=== PATIENT | male | born 1980 | race Caucasian/White ===

== ENCOUNTER 2020-09-08 10:42 | Outpatient (REF) | payer OTHER, SELFPAY ==
--- NOTE | ~2020-09-08 | XR_ITS ---
EXAMINATION: BILATERAL KNEE. CLINICAL INFORMATION: Pain bilaterally. COMPARISON: None TECHNIQUE: 4 views each knee. FINDINGS: RIGHT KNEE: The tricompartment joint space is maintained and normal. No bony erosive changes, loose bodies or joint effusion seen. No fracture or subluxation. The soft tissues are normal. LEFT KNEE: The tricompartment joint space is maintained normal. No fracture, dislocation or subluxation. No loose bodies or joint effusion seen. The soft tissues are normal. XR/XR knee LT 4V IMPRESSION: Unremarkable bilateral knee exam.
--- NOTE | ~2020-09-08 | XR_ITS ---
EXAMINATION: BILATERAL KNEE. CLINICAL INFORMATION: Pain bilaterally. COMPARISON: None TECHNIQUE: 4 views each knee. FINDINGS: RIGHT KNEE: The tricompartment joint space is maintained and normal. No bony erosive changes, loose bodies or joint effusion seen. No fracture or subluxation. The soft tissues are normal. LEFT KNEE: The tricompartment joint space is maintained normal. No fracture, dislocation or subluxation. No loose bodies or joint effusion seen. The soft tissues are normal. XR/XR knee RT 4V IMPRESSION: Unremarkable bilateral knee exam.
== END 2020-09-08 10:43 | disposition home or self-care (01) ==
LOC: HO.HMGCX 10:42
PROVIDERS: PCP Internal Medicine; Visit Provider Nurse Practitioner Family
DX: M25.561 Pain in right knee (principal); M25.562 Pain in left knee
CPT/HCPCS: 73564

== ENCOUNTER 2021-06-29 07:49 | Outpatient (RCR) | payer OTHER, SELFPAY ==
--- NOTE | 2021-06-29 12:32 | MHC.PT.EP ---
[facility] [place] Office [place] Office [place] Office [address] Shaun Carcamo [address] [phone] F: [phone] F: [phone] F: [phone] F: [phone] Physical Therapy Plan of Care Date of Evaluation: Date of Surgery: Diagnosis: This is a 41 yo male presenting to skilled PT with a script for neck strain. Assessment: This is a 41 yo male presenting to skilled PT with a script for neck strain. Pt reports a slip and fall on the since where he fell backwards/onto his R side with loss of consciousness (this occurred on 06/07/21, fall occurred at his residence). He went to [facility] ER and had a CT of the c-spine. Per PCP note unremarkable except for disc protrusion noted at C4-5 causing mild to moderate R sided spinal canal stenosis . He reports today that he knows his body and he had whiplash and a concussion. He had a follow up with his PCP on 06/09/21 where he was still complaining of BUENROSTRO (described as migraine that does not have a specific pattern), brain fog/lack of focus and difficulty with concentration. He also reports difficulty sleeping at night due to neck pain. He was advised to rest, avoid watching TV and computer work, avoid heavy lifting and was out of work for a while (however technically back to work in full but misses work and has a hard time with performing his job since then). He was also given a referral to neurology and saw them yesterday where they suggested pain management as well cognitive speech therapy (returns to neurology on 07/26). Prior to this fall there was a note in our system of neck pain that started in January without injury (woke up with pain, pain was R sided). Patient denies this as chronic pain and states that this was probably from sleeping the wrong way . Assessment reveals pain that ranges up to a 6/10, his pain is constant. He demos decreased cervical and shoulder ROM, decreased shoulder and scapular strength, impaired transfer ability with decreased cervical motion or UB use, impaired cervical and shoulder joint mobility as well as gross functional decline with prolonged positioning, driving and work related tasks. He is a good candidate for skilled PT 2x/wk for 5wks. Patient called after leaving [facility] and states increased fogginess. He did not feel comfortable going to work and asked for a note to excuse him. I educated him to call his MD as this is out of my scope of practice. I also educated him on gentle movements as he states that he has been avoiding most movements. Frequency and Duration: The patient will be seen 2x/wk for 5wks Short Term Goals: I in HEP Demo proper cervical alignment and posture with ther-ex, no PT cuing Reduce general fogginess to no more than 1x/day Usp Goals: Demo normal cervical AROM without pain Improve pain to no more than 2/10 at the worst Improve NDI by 10 points Tolerate sleeping through the night without waking from pain Demo at least 4+/5 scapular and shoulder strength Treatment Plan: Modalities to reduce pain, spasms and effusion. Manual therapy to restore motion and function. Therapeutic exercise to improve strength and flexibility. Neuromuscular re-education for posture and balance. Therapeutic activities to return to functional activities of daily living. Electronically signed by: Rae Ty PT Please sign and return to therapist. Thank you for your referral.
--- NOTE | 2021-07-06 07:54 | MHC.PT.DC ---
[facility] [place] Office [place] Office [place] Office [address] Shaun Carcamo [address] [phone] F: [phone] F: [phone] F: [phone] F: [phone] Physical Therapy Discharge Report Diagnosis: This is a 41 yo male presenting to skilled PT with a script for neck strain. Date of Surgery: Date of Evaluation: 06/29/21 Date of Discharge: 07/06/21 Treatments to Date: 1 Cancellations to Date: 0 No Shows to Date: 0 Discharge Status: Visit Non-compliance Discharge Summary: This is a 41 yo male presenting to skilled PT with a script for neck strain. Pt reports a slip and fall on the since where he fell backwards/onto his R side with loss of consciousness (this occurred on 06/07/21, fall occurred at his residence). He went to [facility] ER and had a CT of the c-spine. Per PCP note unremarkable except for disc protrusion noted at C4-5 causing mild to moderate R sided spinal canal stenosis . He reports today that he knows his body and he had whiplash and a concussion. He had a follow up with his PCP on 06/09/21 where he was still complaining of BUENROSTRO (described as migraine that does not have a specific pattern), brain fog/lack of focus and difficulty with concentration. He also reports difficulty sleeping at night due to neck pain. He was advised to rest, avoid watching TV and computer work, avoid heavy lifting and was out of work for a while (however technically back to work in full but misses work and has a hard time with performing his job since then). He was also given a referral to neurology and saw them yesterday where they suggested pain management as well cognitive speech therapy (returns to neurology on 07/26). Prior to this fall there was a note in our system of neck pain that started in January without injury (woke up with pain, pain was R sided). Patient denies this as chronic pain and states that this was probably from sleeping the wrong way . Assessment reveals pain that ranges up to a 6/10, his pain is constant. He demos decreased cervical and shoulder ROM, decreased shoulder and scapular strength, impaired transfer ability with decreased cervical motion or UB use, impaired cervical and shoulder joint mobility as well as gross functional decline with prolonged positioning, driving and work related tasks. He is a good candidate for skilled PT 2x/wk for 5wks. Patient called after leaving [facility] and states increased fogginess. He did not feel comfortable going to work and asked for a note to excuse him. I educated him to call his MD as this is out of my scope of practice. I also educated him on gentle movements as he states that he has been avoiding most movements. Patient then proceeded to no show to the next 2 visits without notice to facility. At evaluation he had been educated on physical therapy tx, concussion management and visit compliance. DC at this time to non-compliance with scheduled visits and multiple no shows. Electronically signed by: Rae Ty PT Please sign and return to therapist. Thank you for your referral.
== END 2021-07-06 07:54 | disposition home or self-care (01) ==
LOC: HO.PTCHIC 07:49
PROVIDERS: PCP Internal Medicine; Visit Provider Internal Medicine
DX: S13.9XXA Sprain of joints and ligaments of unspecified parts of neck, initial encounter (principal); S14.0XXD Concussion and edema of cervical spinal cord, subsequent encounter; M50.20 Other cervical disc displacement, unspecified cervical region; Z91.81 History of falling
CPT/HCPCS: 97110; 97162

== ENCOUNTER 2023-07-05 12:41 | Outpatient (AMB) | payer OTHER, SELFPAY ==
--- NOTE | 2023-07-05 12:54 | AM.OFFWIN_ITS ---
Intake Vital Signs 07/05/23 12:59 Height 5 ft 7 in Weight 226 lb BMI 35.4 BP 160/100 H Blood Pressure Location Lt brachial Position Sitting Pulse 94 Pulse Source Pulse Oximeter Temp 98.2 F Temp Source Temporal Artery Scan Pulse Oximetry (%) 97 Oxygen Delivery Method Room Air Intake Visit Reasons: EST/ left bright rash (lobby) Intake Note: pt is here today for lft bright rash started 2 months ago Patient Tobacco Use Status: Never used Tobacco Allergies atenolol [ATENOLOL] Allergy (Unknown, Verified 07/05/23 12:54) UNKNOWN, heart racing 14-Count Warmer Allergy (Unknown, Uncoded 07/13/21 14:21) unknown Do you need a note to return to daycare/school/sports/work: No HPI HPI Comments History of Present Illness Details He presents to office wt rash Ongoing x 2 months Small area on bright and has worsened USed OTC creams; ? psoriasis or eczema Itchy and ittitated L side bright only. Denies noticing other rash on body now +itchy without bleeding + bumpy without discharge. Irritated more when dries out [facility] Medical History (Updated 07/05/23 @ 13:13 by Jamilah Escalante PA-C) Cervical spinal stenosis Bulging of cervical intervertebral disc History of fall Surgical History H/O cardiac radiofrequency ablation History of appendectomy Social History Housing: House Alcohol intake: current Alcohol intake frequency: does not drink Patient Tobacco Use Status: Never used Tobacco e-Cigarette/Vaping Use: Never Used service: No Current occupational status: employed Review of Systems Const Denies chills and Denies fever(s) Card Denies dyspnea Resp Denies dyspnea Skin/Breast Reports lesions, Reports erythema, Reports rash and Reports other (L bright itching) Physical Exam Vital Signs: Last Vital Signs Temp 98.2 F 07/05/23 12:59 Pulse 94 07/05/23 12:59 BP 160/100 H 07/05/23 12:59 Pulse Ox 97 07/05/23 12:59 Oxygen Delivery Method Room Air 07/05/23 12:59 BMI result Body Mass Index 35.4 General: Non-toxic, NAD. Speaking full sentences. Skin: Warm dry throughout. L anterior bright has erythematous slightly purple bumping maculopapular follicular patch approx 6inches long x 4 inches wide. + warm to palpation. No drainage or bleeding Eye: EOMI Respiratory: No respiratory distress Cardiac: RRR. No murmur MSK: Full ROM extremities. Neurology: A/O. No aphasia or facial droop. Gait without abnormality Psych: Good mood and affect Assessment & Plan Assessment & Plan (1) Staph skin infection: Code(s): L08.9 - Local infection of the skin and subcutaneous tissue, unspecified; B95.8 - Unspecified staphylococcus as the cause of diseases classified elsewhere Plan: Patient seen and evaluated. Avoid itching Keflex to pharmacy Benadryl cream F/U with PCP Patient gave verbal understanding and had no additional questions or concerns at time of discharge All questions answered Medications: New cephalexin 500 mg PO Q12H 14 caps 0RF diphenhydramine HCl 2% (Benadryl) 1 appl topical BID PRN 103 mL 0RF itching Coding Level of Care Code Est Pt Level 3 (14260) Diagnoses Staph skin infection L08.9; B95.8
[2023-07-05 12:59] VITALS: BP 160/100; PULSE 94; TEMP 36.8; O2SAT 97; BMI 35.4
== END 2023-07-05 13:13 | disposition home or self-care (01) ==
PROVIDERS: PCP Internal Medicine; Visit Provider Physician Assistant
DX: L08.9 Local infection of the skin and subcutaneous tissue, unspecified (principal); B95.8 Unspecified staphylococcus as the cause of diseases classified elsewhere
CPT/HCPCS: 99213

== ENCOUNTER 2024-06-20 12:57 | Outpatient (AMB) | payer OTHER, MEDICAID, SELFPAY ==
[2024-06-20 13:14] VITALS: BP 142/100; PULSE 91; TEMP 37.4; O2SAT 94
--- NOTE | 2024-06-20 13:14 | MHC.OFFWIV ---
Intake Vital Signs 06/20/24 13:14 Weight 230 lb BP 142/100 H Blood Pressure Location Rt brachial Position Sitting Pulse 91 Pulse Source Pulse Oximeter Temp 99.4 F Temp Source Oral Pulse Oximetry (%) 94 Oxygen Delivery Method Room Air Intake Visit Reasons: EP-cough, sob, migraine, body ache Intake Note: Patient here for cough, migraine, SOB, body aches that has been present for 2 months. Patient Tobacco Use Status: Never used Tobacco Allergies atenolol [ATENOLOL] Allergy (Unknown, Verified 06/20/24 13:15) UNKNOWN, heart racing 14-Count Warmer Allergy (Unknown, Uncoded 06/20/24 13:15) unknown Do you need a note to return to daycare/school/sports/work: No HPI HPI Comments History of Present Illness Details 44 y/o male patient who presents to the walk in clinic with c/o cough, headaches and body aches x 2 months. [facility] Medical History (Updated 06/20/24 @ 13:29 by Yvette Vela NP) Cough Acute respiratory disease Cervical spinal stenosis Bulging of cervical intervertebral disc History of fall Surgical History H/O cardiac radiofrequency ablation History of appendectomy Social History Housing: House Alcohol intake: current Alcohol intake frequency: does not drink Patient Tobacco Use Status: Never used Tobacco e-Cigarette/Vaping Use: Never Used service: No Current occupational status: employed Review of Systems Const All systems reviewed & are unremarkable except as noted in HPI and below Physical Exam Vital Signs: Last Vital Signs Temp 99.4 F 06/20/24 13:14 Pulse 91 06/20/24 13:14 BP 142/100 H 06/20/24 13:14 Pulse Ox 94 06/20/24 13:14 Oxygen Delivery Method Room Air 06/20/24 13:14 Const General: cooperative and no acute distress Nutritional Appearance: obese Orientation/consciousness: patient oriented x3 HEENT Head: Yes normocephalic Ears: external ears normal and TM abnormal with fluid behind the TM bilateral General nose exam: Nasal discharge present Face and sinus: Yes sinuses nontender Mouth: moist mucous membranes Throat: Yes uvula midline Resp Effort & Inspection: normal respiratory effort, able to speak in complete sentences, no audible wheezes and no cough Auscultation: clear to auscultation bilaterally, no crackles, no rales, no rhonchi and no wheezes Cardio Heart sounds: S1 normal heart sound present and S2 normal heart sound present Neuro General: patient oriented x3 Assessment & Plan Assessment & Plan (1) Acute respiratory disease: Code(s): J06.9 - Acute upper respiratory infection, unspecified Plan: Ordered SARs Ordered Chest Xray (2) Cough: Code(s): R05.9 - Cough, unspecified Qualifiers: Cough type: subacute Qualified Code(s): R05.2 - Subacute cough Plan: Ordered SARs Ordered Chest Xray Orders: Orders XR chest 2V Today J06.9 - Acute upper respiratory infection, unspecified, R05.2 - Subacute cough SARS-CoV2/FLU/RSV Today J06.9 - Acute upper respiratory infection, unspecified Medications: New benzonatate 100 mg PO TID 90 caps 0RF R05.2 - Subacute cough Coding Level of Care Code Est Pt Level 4 (78182) Diagnoses Acute respiratory disease J06.9 Subacute cough R05.2 Cough type: subacute Time Spent (min) 20
--- OUTSIDE RECORDS SUMMARY | 2024-06-20 13:51 | XMS_ITS | Data Portability ---
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 Primary Care Provider Assessment No assessment recorded. Plan of Treatment Reminders Order Date Submit Date Provider Last Modified By Organization Details Last Modified Time Details Appointments None recorded. Lab Mycobacteri um tuberculosi s stimulated gamma interferon, qual, blood 2022 023 LOMAN [facility], [address] [place] [address], [place], [address], 20:06:21 Referral None recorded. Procedures None recorded. Surgeries None recorded. Imaging None recorded. Medication Orders None recorded. Patient TargetsNo targets recorded. Patient Instructions Encounter Date Encounter Id Patient Instructions Last Modified By Organization Details Last Modified Time 12/07/2022 [id number] This physical does not replace the annual physical to be performed by your PCP. There may be additional screening tests that they will perform that we do not in the urgent care setting. Failure to follow up as recommended may result in significant adverse health consequences. ? If your symptoms worsen or you develop new symptoms that concern you, go to the emergency department for further evaluation. [email or web address] Not available 12/07/2022 10:08:31 Reason for Referral None Reported. Results Created Date Observation Date Name Description Value Unit Range Abnormal Flag Note LastModifiedBy Organization Detail LastModifiedTime 12/08/19 23 12/09/2022 QUANT IFERO N-TB GOLD PLUS quantiferon incubation INCUBA TION PERFOR MED. Not Available [facility] ([facility]) [address], [place], [address], 12/09/2022 20:06:21 12/08/19 23 12/09/2022 QUANT IFERO N-TB GOLD PLUS quantiferon criteria COMMEN T Quant iFERO N-TB Gold Plus is a quali tativ e indir ect test for M tuber jimios is infec tion (incl uding disea se) and is inten ded for use in conju nctio n with risk asses sment , radio graph y, and other medic al and diagn ostic evalu ation s. The Quant iFERO N-TB Gold Plus resul t is deter mined by subtr actin g the Nil value from eithe r TB antig en (Ag) value . The Mitog en tube serve s as a contr ol for the test. Not Available [facility] ([facility]) [address] [place], [address], 12/09/2022 20:06:21 12/08/19 23 12/09/2022 QUANT IFERO N-TB GOLD PLUS quantiferon TB1 Ag value 0.00 IU/mL Not Available [facility] ([facility]) [address] [place], [address], 12/09/2022 20:06:21 12/08/19 23 12/09/2022 QUANT IFERO N-TB GOLD PLUS quantiferon TB2 Ag value 0.00 IU/mL Not Available [facility] ([facility]) [address] [place], [address], 12/09/2022 20:06:21 12/08/19 23 12/09/2022 QUANT IFERO N-TB GOLD PLUS quantiferon nil value 0.00 IU/mL Not Available [facility] ([facility]) [address] [place], [address], 12/09/2022 20:06:21 12/08/19 23 12/09/2022 QUANT IFERO N-TB GOLD PLUS quantiferon mitogen value >10.00 IU/mL Not Available [facility] ([facility]) [address] [place], [address], 12/09/2022 20:06:21 12/08/19 23 12/09/2022 QUANT IFERO N-TB GOLD PLUS quantiferon- TB gold plus NEGATI VE negati ve No respo nse to Carmelina sampson is antig ens detec evelyn. Infec tion with M lolis sampson is is unlik raúl, but high risk indiv idual s shoul d be consi dered for addit ional testi ng (ATS/ IDSA/ CDC Clini asuncion Pract ice Guide lines , 2017) . The refer ence range is an Antig en minus Nil resul t of <0.35 IU/mL . Chemi lumin escen ce immun oassa y metho dolog y Not Available [facility] ([facility]) [address], [place], [address], 12/09/2022 20:06:21 Result Notes None recorded. Problems No Known Problems Procedures Surgical History Date Name Laterality Status Provider Name and Address Organization Details Recorded Time 12/08/19 23 OC - Venipuncture Template completed EAGLE ADWKINS [employer] - [facility] 12/07/2022 09:33:36 12/08/19 23 OC- Physical completed EAGLE DAWKINS PA - [facility] 12/07/2022 09:33:41 Imaging Results None recorded. Procedure Notes None recorded. Medical Equipment None Reported. Allergies No known drug allergies Medications Name Sig Start Date Stop Date Status Note LastModified by Organization Details LastModified Time ofloxacin 0.3 % ear drops PLACE 5 DROPS IN BOTH EARS TWICE A DAY 10 DAYS 2022 completed Not Available Not Available Not Available Vitals Date Recorded Pain severity - 0-10 verbal numeric rating [Score] - Reported Respiratory rate Body weight Body mass index (BMI) Body height Heart rate Oxygen saturation Oxygen saturation in Arterial blood by Pulse oximetry Body temperature Systolic blood pressure Diastolic blood pressure Provider Name and Address Organization Details Last Updated DateTime 3 0 18 /min 788517. 47 g 35.6 kg/m2 170.18 cm 86 /min 97 % 97 % 97.7 [degF] 142 mm[Hg] 90 mm[Hg] JERED DEPINTO [facility] - [facility] 09:53:02 Social History Question Answer Notes LastModified by Organizat ion Details LastModified Time Tobacco Smoking Status Never Smoker JERED BROCK [facility] - [facility] 12/07/2022 09:51:24 What Is Your Level Of Alcohol Consumption? None Information not available 12/07/2022 Do You Use Any Illicit Or Recreational Drugs? No Information not available 12/07/2022 Have You Recently Traveled Abroad? No Information not available 12/07/2022 Do You Or Have You Ever Used Any Other Forms Of Tobacco Or Nicotine? No Information not available 12/07/2022 Sex: Unknown Functional Status None recorded. Mental Status None recorded. Family History Relationship Description Onset Age of this Age Resolved Age Notes LastModified by Organization Details LastModified Time Father No current problems or disability Not available 12/07 09:51:17 Mother No current problems or disability Not available 12/07 09:51:17 Medical History No medical history recorded. Past Encounters Encounter ID Performer Location Encounter Start Date Encounter Closed Date Diagnosis/Indication Diagnosis SNOMED-CT Code Diagnosis ICD10 Code Diagnosis Note [id number] [address] [address] 07/09/2021 09:03:10 07/09/2021 11:00:04 [id number] [address] 08/10/2021 09:36:22 08/10/2021 11:24:28 [id number] [place] [address] [place] [address] 12/07/2022 09:21:43 12/07/2022 10:09:18 History and physical examination, occupation [id number] Z02.1 History an d physical examination, pre-employment 131548503 Z02.1 Health Concerns Section Related Observation LastModified by Organization Detai ls LastModified Time None Recorded Concern Status LastModified by Organization Details LastModified Time None Recorded Advance Directives Directive None Recorded Payers Encounter Date Sequence Insurance Name Policy Number Policy Morrow Covered Member ID Morrow Member ID Guarantor Name 07/09/2021 1 [facility] [id number] 1 Tali Ambrosen [id number] Giancarlorocky Ambrosen 08/10/2021 1 [facility] [id number] 1 Taliheather Ambrosen [id number] Giancarlo Luna 12/07/2022 OC-PAY AT TIME OF SERVICE 2022 Oc-Pay At Time Of Service [facility] Giancarlo Luna Notes Date Note Type Note Provider Name a nd Address Organization Details Recorded Time 12/07/2022 text/html physical Chin TRIXIE Bennett [address] [place], [address], [place] - [facility] 12/07/2022 10:08:54
== END 2024-06-20 14:01 | disposition home or self-care (01) ==
PROVIDERS: PCP Internal Medicine; Visit Provider Nurse Practitioner Family
DX: J06.9 Acute upper respiratory infection, unspecified (principal); R05.2 Subacute cough

== ENCOUNTER 2024-06-20 12:57 | Outpatient (REF) | payer OTHER, MEDICAID, SELFPAY ==
--- NOTE | ~2024-06-20 | XR_ITS ---
EXAMINATION: XR CHEST CLINICAL INFORMATION: R05.2 - Subacute cough COMPARISON: None available. TECHNIQUE: 2 views of the chest were obtained. FINDINGS: The cardiac, hilar, and mediastinal contours are normal. The lungs are clear bilaterally. There is no pneumothorax or pleural effusion. There is no focal osseous or soft tissue abnormality. XR/XR chest 2V IMPRESSION: Normal chest. Electronically signed by: Jeremy Crockett MD 06/20/2024 01:59 PM [facility]
== END 2024-06-20 12:58 | disposition home or self-care (01) ==
LOC: HO.HMGCX 12:57
PROVIDERS: PCP Internal Medicine; Visit Provider Nurse Practitioner Family
DX: R05.2 Subacute cough (principal); J06.9 Acute upper respiratory infection, unspecified
CPT/HCPCS: 71046

== ENCOUNTER 2024-06-20 13:46 | Outpatient (REF) | payer OTHER, MEDICAID, SELFPAY ==
[2024-06-20 17:40] LABS: Influenza A PCR NEGATIVE (Negative); Influenza B PCR NEGATIVE (Negative); Resp Syncy Virus RNA Qual PCR NEGATIVE (Negative); SARS COV2 PCR INHOUSE NEGATIVE (Negative)
== END 2024-06-20 13:47 | disposition home or self-care (01) ==
LOC: HO.LAB 13:46
PROVIDERS: Visit Provider Nurse Practitioner Family
DX: J06.9 Acute upper respiratory infection, unspecified (principal)
CPT/HCPCS: 0241U

== ENCOUNTER → 2024-06-20 13:47 | Outpatient (BNV) | payer OTHER, MEDICAID, SELFPAY | PROVIDERS: PCP Internal Medicine; Visit Provider Radiology Diagnostic Radiology | DX: R05.2 Subacute cough (principal) | CPT/HCPCS: 71046 ==

== ENCOUNTER 2024-09-05 09:25 | Outpatient (AMB) | payer OTHER, MEDICAID, SELFPAY ==
--- OUTSIDE RECORDS SUMMARY | 2024-09-05 10:02 | XMS_ITS | Data Portability ---
Author Organization [facility], [address] Address [address] [place] [address] Care Team Providers Care Inventory Worker Name Role Phone [facility] Primary Care Provider Assessment No assessment recorded. Plan of Treatment Reminders Order Date Submit Date Provider Last Modified By Organization Details Last Modified Time Details Appointments None recorded. Lab Mycobacteri um tuberculosi s stimulated gamma interferon, qual, blood 2022 023 [place] [facility], [address] [place] [address], [place], [address], 20:06:21 Referral None recorded. Procedures None recorded. Surgeries None recorded. Imaging None recorded. Medication Orders None recorded. Patient TargetsNo targets recorded. Patient Instructions Encounter Date Encounter Id Patient Instructions Last Modified By Organization Details Last Modified Time 12/07/2022 [id number] This physical does not replace the annual [...] INCUBA TION PERFOR MED. Not Available [facility] ([facility]) [address], [place], [address], 12/09/2022 20:06:21 12/08/19 23 12/09/2022 QUANT IFERO [...] ol for the test. Not Available [facility] ([facility]) [address] [place], [address], 12/09/2022 20:06:21 12/08/19 23 12/09/2022 QUANT IFERO N-TB GOLD PLUS quantiferon TB1 Ag value 0.00 IU/mL Not Available [facility] ([facility]) [address] [place], [address], 12/09/2022 20:06:21 12/08/19 23 12/09/2022 QUANT IFERO N-TB GOLD PLUS quantiferon TB2 Ag value 0.00 IU/mL Not Available [facility] ([facility]) [address] [place], [address], 12/09/2022 20:06:21 12/08/19 23 12/09/2022 QUANT IFERO N-TB GOLD PLUS quantiferon nil value 0.00 IU/mL Not Available [facility] ([facility]) [address] [place], [address], 12/09/2022 20:06:21 12/08/19 23 12/09/2022 QUANT IFERO N-TB GOLD PLUS quantiferon mitogen value >10.00 IU/mL Not Available [facility] ([facility]) [address] [place], [address], 12/09/2022 20:06:21 12/08/19 23 12/09/2022 QUANT IFERO [...] y metho dolog y Not Available [facility] ([facility]) [address], [place], [address], 12/09/2022 20:06:21 Result Notes None recorded. Problems No Known Problems Procedures Surgical History Date Name Laterality Status Provider Name and Address Organization Details Recorded Time 12/08/19 23 OC - Venipuncture Template completed EAGLE DAWKINS [employer] - [facility] [employer] [facility] 12/07/2022 09:33:36 12/08/19 23 OC- Physical [...] Last Updated DateTime 3 0 18 /min 381980. 47 g 35.6 kg/m2 170.18 cm 86 /min 97 % 97 % 97.7 [degF] 142 mm[Hg] 90 mm[Hg] JERED DEPINTO [facility]ISHAL - [facility] 09:53:02 Social History Question Answer Notes LastModified by Organizat ion Details LastModified Time Tobacco Smoking Status Never Smoker JERED BROCK [facility] 12/07/2022 09:51:24 What Is Your [...] SNOMED-CT Code Diagnosis ICD10 Code Diagnosis Note [id number] [address] [address] 07/09/2021 09:03:10 07/09/2021 11:00:04 [id number] [address] [address] 08/10/2021 09:36:22 08/10/2021 11:24:28 [id number] [place] Bennett [place] [address] [facility] [address] [place] [address] 12/07/2022 09:21:43 12/07/2022 10:09:18 History and physical examination, occupation 130003314 Z02.1 History an d physical examination, pre-employment 819406915 Z02.1 Health Concerns Section Related Observation LastModified by Organization Detai ls LastModified Time None Recorded Concern Status LastModified by Organization Details LastModified Time None Recorded Advance Directives Directive None Recorded Payers Insurance Date Sequence Insurance Name Policy Number Policy Morrow Covered Member ID Morrow Member ID Guarantor Name 12/07/2022 PAY AT TOS Oc-Pay At Time Of Service [facility] Giancarlo Amborsen 12/07/2022 OC-PAY AT TIME OF SERVICE 2022 Oc-Pay At Time Of Service [facility] Giancarlo Ambrosen 12/06/2022 1 [facility] [id number] Tali Luna [id number] Giancarlo Ambrosen Notes Date Note Type Note Provider Name a nd Address Organization Details Recorded Time 12/07/2022 text/html physical Chinkevin Bennett NP [address] [place], [address], [place] - [facility] 12/07/2022 10:08:54
--- NOTE | 2024-09-05 10:24 | MHC.OFFWIV ---
Intake Vital Signs 09/05/24 10:34 Weight 231 lb BP 130/90 H Blood Pressure Location Rt brachial Position Sitting Pulse 84 Pulse Source Pulse Oximeter Pulse Oximetry (%) 98 Oxygen Delivery Method Room Air Intake Visit Reasons: EP lower back pain rt side, kidney, work note Intake Note: Patient here for lower back pain, he went to ED on 09/02 and was told he has a kidney stone but needs an extension to the work note that was provided from ED. Patient Tobacco Use Status: Never used Tobacco Allergies atenolol [ATENOLOL] Allergy (Unknown, Verified 09/05/24 10:34) UNKNOWN, heart racing 14-Count Warmer Allergy (Unknown, Uncoded 09/05/24 10:34) unknown Do you need a note to return to daycare/school/sports/work: Yes HPI HPI Comments History of Present Illness Details 44 y/o Male patient who presents to the walk in clinic with c/o lower back pain since Monday. He was seen at [facility]/02 and was diagnosed with right Kidney Stone. He was discharged home with Flomax, Zofran and Oxycodone. Reports severe pain, and he is unable to return to work, here asking for work note. [facility] Medical History (Updated 09/05/24 @ 11:07 by Yvette Vela NP) Right kidney stone Cough Acute respiratory disease Cervical spinal stenosis Bulging of cervical intervertebral disc History of fall Surgical History H/O cardiac radiofrequency ablation History of appendectomy Social History Housing: House Alcohol intake: current Alcohol intake frequency: does not drink Patient Tobacco Use Status: Never used Tobacco e-Cigarette/Vaping Use: Never Used service: No Current occupational status: employed Review of Systems Const All systems reviewed & are unremarkable except as noted in HPI and below Physical Exam Vital Signs: Last Vital Signs Pulse 84 09/05/24 10:34 BP 130/90 H 09/05/24 10:34 Pulse Ox 98 09/05/24 10:34 Oxygen Delivery Method Room Air 09/05/24 10:34 Const General: no acute distress; No comfortable Nutritional Appearance: obese Orientation/consciousness: patient oriented x3 General: Yes CVA tenderness (right sided. ) Back/Spine/Pelvis Back: CVA tenderness (right sided. ) and back tenderness Neuro General: patient oriented x3, gait normal and moves all extremities Assessment & Plan Assessment & Plan (1) Right kidney stone: Code(s): N20.0 - Calculus of kidney Plan: Ordered Naproxen Rest, work note given Take medications as prescribed. Medications: New naproxen 500 mg PO BID 20 tabs 0RF N20.0 - Calculus of kidney Coding Level of Care Code Est Pt Level 4 (58141) Diagnoses Right kidney stone N20.0 Time Spent (min) 20
[2024-09-05 10:34] VITALS: BP 130/90; PULSE 84; O2SAT 98
== END 2024-09-05 11:26 | disposition home or self-care (01) ==
PROVIDERS: PCP Internal Medicine; Visit Provider Nurse Practitioner Family
DX: Z13.9 Encounter for screening, unspecified (principal); N20.0 Calculus of kidney

== ENCOUNTER → 2024-09-05 09:25 | Outpatient (BNVA) | payer OTHER, MEDICAID, SELFPAY | PROVIDERS: PCP Internal Medicine; Visit Provider Nurse Practitioner Family | DX: N20.0 Calculus of kidney (principal) | CPT/HCPCS: 81003 ==

== ENCOUNTER 2024-09-16 08:55 | Outpatient (AMB) | payer OTHER, MEDICAID, SELFPAY ==
--- OUTSIDE RECORDS SUMMARY | 2024-09-16 09:03 | XMS_ITS | Data Portability ---
Author Organization [facility], [address] Address [address] [place] [address] Care Team Providers Care Suit Attendant Name Role Phone [facility] Primary Care Provider [phone] Assessment No assessment recorded. Plan of Treatment Reminders Order Date Submit Date Provider Last Modified By Organization Details Last Modified Time Details Appointments None recorded. Lab Mycobacteri um tuberculosi s stimulated gamma interferon, qual, blood 2022 023 [place] [facility], [address] [place] [address], [place], [address], 20:06:21 Referral None recorded. Procedures None recorded. Surgeries None recorded. Imaging None recorded. Medication Orders None recorded. Patient TargetsNo targets recorded. Patient Instructions Encounter Date Encounter Id Patient Instructions Last Modified By Organization Details Last Modified Time 12/07/2022 [id number] This physical does not replace the annual [...] INCUBA TION PERFOR MED. Not Available [facility] ([facility]) [address] [facility], [place], [address], 12/09/2022 20:06:21 12/08/19 23 12/09/2022 QUANT IFERO [...] ol for the test. Not Available [facility] ([facility]) [address] [place], [address], 12/09/2022 20:06:21 12/08/19 23 12/09/2022 QUANT IFERO N-TB GOLD PLUS quantiferon TB1 Ag value 0.00 IU/mL Not Available [facility] ([facility]) [address] [place], [address], 12/09/2022 20:06:21 12/08/19 23 12/09/2022 QUANT IFERO N-TB GOLD PLUS quantiferon TB2 Ag value 0.00 IU/mL Not Available [facility] ([facility]) [address] [place], [address], 12/09/2022 20:06:21 12/08/19 23 12/09/2022 QUANT IFERO N-TB GOLD PLUS quantiferon nil value 0.00 IU/mL Not Available [facility] ([facility]) [address] [place], [address], 12/09/2022 20:06:21 12/08/19 23 12/09/2022 QUANT IFERO N-TB GOLD PLUS quantiferon mitogen value >10.00 IU/mL Not Available [facility] ([facility]) [address] [place], [address], 12/09/2022 20:06:21 12/08/19 23 12/09/2022 QUANT IFERO N-TB GOLD PLUS quantiferon- TB gold plus NEGATI VE negati ve No respo nse to M lolis sampson is antig ens detec evelyn. Infec [...] y metho dolog y Not Available [facility] ([facility]) [address] [facility], [place], [address], 12/09/2022 20:06:21 Result Notes None recorded. Problems No Known Problems Procedures Surgical History Date Name Laterality Status Provider Name and Address Organization Details Recorded Time 12/08/19 23 OC - Venipuncture Template completed EAGLE DAWKINS PA - [facility] 12/07/2022 09:33:36 12/08/19 23 OC- Physical [...] Not Available Not Available Vitals Date Recorded Respiratory rate Body weight Body mass index (BMI) Body height Heart rate Oxygen saturation Oxygen saturation in Arterial blood by Pulse oximetry Body temperature Systolic blood pressure Diastolic blood pressure Provider Name and Address Organization Details Last Updated DateTime 3 18 /min 942324. 47 g 35.6 kg/m2 170.18 cm 86 /min 97 % 97 % 97.7 [degF] 142 mm[Hg] 90 mm[Hg] JERED BROCK PA - [facility] 09:53:02 Social History Question Answer Notes LastModified by Organizat ion Details LastModified Time Tobacco Smoking Status Never Smoker [facility] 12/07/2022 09:51:24 Have You Recently Traveled Abroad? No Information not available 12/07/2022 Sex: Unknown Functional Status Question Answer Note LastModified by Organizat ion Details LastModified Time Do you use any illicit or recreational drugs? No Information not available 12/07/2022 Do you or have you ever used any other forms of tobacco or nicotine? No Information not available 12/07/2022 What is your level of alcohol consumption? None Information not available 12/07/2022 Mental Status None recorded. Family History Relationship [...] SNOMED-CT Code Diagnosis ICD10 Code Diagnosis Note [id number] [address] [address] 07/09/2021 09:03:10 07/09/2021 11:00:04 [id number] [address] [address] 08/10/2021 09:36:22 08/10/2021 11:24:28 [id number] [place] [address] [facility] [address] [place] [address] 12/07/2022 09:21:43 12/07/2022 10:09:18 History and physical examination, occupation 741718110 Z02.1 History an d physical examination, pre-employment 547152744 Z02.1 Health Concerns Section Related Observation LastModified by Organization Detai ls LastModified Time None Recorded Concern Status LastModified by Organization Details LastModified Time None Recorded Advance Directives Directive None Recorded Payers Insurance Date Sequence Insurance Name Policy Number Policy Morrow Covered Member ID Morrow Member ID Guarantor Name 12/07/2022 PAY AT TOS Oc-Pay At Time Of Service [facility] Giancarlo Ambrosen 12/07/2022 OC-PAY AT TIME OF SERVICE 2022 Oc-Pay At Time Of Service [facility] Giancarlo Ambrosen 12/06/2022 1 [facility] [id number] Tali Ambrosen [id number] Giancarlo Ambrosen Notes Date Note Type Note Provider Name a nd Address Organization Details Recorded Time 12/07/2022 text/html physical Chinkevin Bennett NP [address] [place], [address], [place] - [facility] 12/07/2022 10:08:54
--- NOTE | 2024-09-16 09:29 | AM.OFFWIN_ITS ---
Intake Vital Signs 09/16/24 09:32 Weight 225 lb BP 120/86 Blood Pressure Location Lt brachial Position Sitting Pulse 68 Pulse Source Pulse Oximeter Pulse Oximetry (%) 98 Oxygen Delivery Method Room Air Intake Visit Reasons: EP-back pain Intake Note: Patient here for back pain and needs a work note as he does have a scheduled surgery for kidney stones. he is looking for a note to cover him from 09/16-09/18 Patient Tobacco Use Status: Never used Tobacco Allergies atenolol [ATENOLOL] Allergy (Unknown, Verified 09/16/24 09:38) UNKNOWN, heart racing 14-Count Warmer Allergy (Unknown, Uncoded 09/16/24 09:38) unknown Do you need a note to return to daycare/school/sports/work: Yes HPI HPI Comments History of Present Illness Details History of Present Illness - The patient is a 44 year old male pres enting with a follow-up visit for kidney stones. - Onset of kidney stone issues was noted on the of the month. - The patient sought care in the Emergen cy Room three times due to pain from kidney stones. - He is scheduled for Shockwave Lithotri psy on the of the month at [facility]. - Management has included medication, sp ecifically Flomax. - Pain has been reported as a significan t symptom, with no fever or changes in urination aside from pain. - A medical leave note is requested to c over five days around the time of the planned procedure. Physical Exam General: Cooperative, healthy appearing, comfortable, no acute distress and well developed Orientation: Patient oriented x3 Limitations: No limitations Head: Normal to inspection Ears: Hearing grossly normal bilaterally Nose: Normal External nose present Face and sinus: Normal facial exam Eyes: Appearance normal, both eyes and all related structures Neck: Normal visual inspection and Yes full ROM Respiratory: Normal respiratory effort and able to speak in complete sentences. Skin: No rashes or lesions noted Neuro: Patient oriented x3 Extremities: Normal to inspection [facility] Medical History (Updated 09/05/24 @ 11:07 by Yvette Vela NP) Right kidney stone Cough Acute respiratory disease Cervical spinal stenosis Bulging of cervical intervertebral disc History of fall Surgical History H/O cardiac radiofrequency ablation History of appendectomy Social History Housing: House Alcohol intake: current Alcohol intake frequency: does not drink Patient Tobacco Use Status: Never used Tobacco e-Cigarette/Vaping Use: Never Used service: No Current occupational status: employed Review of Systems Const All systems reviewed & are unremarkable except as noted in HPI and below Physical Exam Vital Signs: Last Vital Signs Pulse 68 09/16/24 09:32 BP 120/86 09/16/24 09:32 Pulse Ox 98 09/16/24 09:32 Oxygen Delivery Method Room Air 09/16/24 09:32 Assessment & Plan Assessment & Plan (1) Right kidney stone: Code(s): N20.0 - Calculus of kidney Plan: The patient is scheduled to undergo ESWL for nephrolithiasis on the of this month. He is currently managed with Flomax for symptom control and will receive a medical leave note to cover five days surrounding the procedure for recovery. Pain management is adequate with ongoing medication, and he is encouraged to maintain high hydration. He has been advised to seek urgent care for any emergent symptoms warranting immediate medical assessment, such as a fever or worsened pain. Patient was informed and verbally consented to the use of an ambient scribe for clinic note documentation during this visit. Coding Level of Care Code Est Pt Level 2 (04387) Diagnoses Right kidney stone N20.0
[2024-09-16 09:32] VITALS: BP 120/86; PULSE 68; O2SAT 98
== END 2024-09-16 09:50 | disposition home or self-care (01) ==
PROVIDERS: PCP Internal Medicine; Visit Provider Physician Assistant
DX: N20.0 Calculus of kidney (principal)

== ENCOUNTER → 2024-09-16 08:55 | Outpatient (BNVA) | payer OTHER, MEDICAID, SELFPAY | PROVIDERS: PCP Internal Medicine; Visit Provider Physician Assistant | DX: Z13.89 Encounter for screening for other disorder (principal) ==

== ENCOUNTER 2024-09-20 10:49 | Outpatient (AMB) | payer OTHER, MEDICAID, SELFPAY ==
--- NOTE | 2024-09-20 10:46 | A.OFFPC_ITS ---
Intake Visit Reasons: Follow up Walk-in ~ Back pain/Kindney stone Allergies atenolol [ATENOLOL] Allergy (Unknown, Verified 09/20/24 11:04) UNKNOWN, heart racing 14-Count Warmer Allergy (Unknown, Uncoded 09/20/24 11:04) unknown Medication List - Last Reconciled 09/20/24 by Diana Mcguire MD ibuprofen mg PO ondansetron 4 mg PO Q8H PRN oxycodone mg PO Tobacco use date assessed: 09/20/24 Dental Screening Dental Screen Date: 09/20/24 Did you have a dental visit in the last 12 months?: Yes Did you have a dental problem in the last 6 months where you did not have access to dental care?: No Was dental information given to patient?: Patient has dentist HPI Follow up Walk-in ~ Back pain/Kindney stone HPI Details - The patient is a 44-year-old male pres enting with a follow-up for kidney stone management and post-surgical complications. - Post-operative pain began shortly afte r kidney stone surgery, prompting an ER visit due to its severity. - The pain was attributed to gas build-u p post-surgery, causing the gut to stop moving. - Additional symptoms post-surgery inclu de hematuria and constipation despite prescribed pain medications. recently picked up a prescription for MiraLax and bisacodyl, which she still has not started taking - he was prescribed Tramadol, which was not available at the pharmacy, leading to a recommendation to use Oxycodone. - The patient has been taking stool soft eners and MiraLAX to alleviate constipation, as advised by healthcare providers. - Work leave was granted due to ongoing pain and complications until the follow- up appointment with the urologist. [facility] Medical History (Updated 09/21/24 @ 00:49 by Diana Mcguire MD) Constipation Right kidney stone Cough Acute respiratory disease Cervical spinal stenosis Bulging of cervical intervertebral disc History of fall Surgical History H/O cardiac radiofrequency ablation History of appendectomy Social History Housing: House Alcohol intake: current Alcohol intake frequency: does not drink Patient Tobacco Use Status: Never used Tobacco e-Cigarette/Vaping Use: Never Used service: No Current occupational status: employed Cognitive needs: No Hearing needs: No Vision needs: Yes Questionnaire Thrive Questionnaire Date Thrive assessed: 06/09/21 Review of Systems Const All systems reviewed & are unremarkable except as noted in HPI and below Physical exam (Primary Care) Tobacco/Smoking Status: Tobacco use Status Tobacco use date assessed 09/20/24 09/20/24 10:48 Patient Tobacco Use Status Never used Tobacco 09/20/24 10:48 e-Cigarette/Vaping Use Never Used 09/20/24 10:48 Thrive Assessment: Date of Thrive Assessment Date Thrive assessed 06/09/21 09/20/24 10:48 Coding Level of Care Code Tele Est Pt Level 4 (97171) Diagnoses Constipation, unspecified constipation type K59.00 Constipation type: unspecified constipation type Right ureteral stone N20.1 Assessment & Plan Assessment & Plan (1) Constipation: Code(s): K59.00 - Constipation, unspecified Category: Medical Qualifiers: Constipation type: unspecified constipation type Qualified Code(s): K59.00 - Constipation, unspecified Plan: Advised to take MiraLAX and stool softeners, coupled with increased fluid intake, and cutting back on oxycodone use (2) Right ureteral stone: Code(s): N20.1 - Calculus of ureter Plan: Recently had ureteral stent placed He takes Oxycodone as needed for pain which has not been affording completely relief of pain, and has developed constipation. focus is on constipation management with MiraLAX and stool softeners, coupled with increased fluid intake, per prior nursing advice. A follow-up visit with the urology specialist is scheduled for October 03, 2024, requiring an excuse note for work leave from September 23 until then. Pain management will be closely monitored and adjusted as required based on upcoming evaluation results, and discussion about work extension has been provisioned given the ongoing recovery. Patient was informed and verbally consented to the use of an ambient scribe for clinic note documentation during this visit.
--- OUTSIDE RECORDS SUMMARY | 2024-09-20 10:53 | XMS_ITS | Data Portability ---
Author Organization [facility], [address] Address [address] [place] [address] Care Team Providers Care Chief Embalmer Name Role Phone [facility] Primary Care Provider Assessment No assessment recorded. Plan of Treatment Reminders Order Date Submit Date Provider Last Modified By Organization Details Last Modified Time Details Appointments None recorded. Lab Mycobacteri um tuberculosi s stimulated gamma interferon, qual, blood 2022 023 [place] [facility], [address] [place] [address], [place], [address], 20:06:21 Referral None recorded. Procedures None recorded. Surgeries None recorded. Imaging None recorded. Medication Orders None recorded. Patient TargetsNo targets recorded. Patient Instructions Encounter Date Encounter Id Patient Instructions Last Modified By Organization Details Last Modified Time 12/07/2022 [id number] This physical does not replace the annual [...] INCUBA TION PERFOR MED. Not Available [facility] ([facility]) [address] [facility], [place], [address], 12/09/2022 20:06:21 12/08/19 23 12/09/2022 QUANT IFERO [...] ol for the test. Not Available [facility] ([facility]) [address] [place], [address], 12/09/2022 20:06:21 12/08/19 23 12/09/2022 QUANT IFERO N-TB GOLD PLUS quantiferon TB1 Ag value 0.00 IU/mL Not Available [facility] ([facility]) [address] [place], [address], 12/09/2022 20:06:21 12/08/19 23 12/09/2022 QUANT IFERO N-TB GOLD PLUS quantiferon TB2 Ag value 0.00 IU/mL Not Available [facility] ([facility]) [address] [place], [address], 12/09/2022 20:06:21 12/08/19 23 12/09/2022 QUANT IFERO N-TB GOLD PLUS quantiferon nil value 0.00 IU/mL Not Available [facility] ([facility]) [address] [place], [address], 12/09/2022 20:06:21 12/08/19 23 12/09/2022 QUANT IFERO N-TB GOLD PLUS quantiferon mitogen value >10.00 IU/mL Not Available [facility] ([facility]) [address] [place], [address], 12/09/2022 20:06:21 12/08/19 23 12/09/2022 QUANT IFERO [...] y metho dolog y Not Available [facility] ([facility]) [address] [facility], [place], [address], 12/09/2022 20:06:21 Result Notes None recorded. Problems [...] Details Last Updated DateTime 3 18 /min 912166. 47 g 35.6 kg/m2 170.18 cm 86 [...] SNOMED-CT Code Diagnosis ICD10 Code Diagnosis Note [id number] [address] [address] 07/09/2021 09:03:10 07/09/2021 11:00:04 [id number] [address] [address] 08/10/2021 09:36:22 08/10/2021 11:24:28 [id number] Chin Bennett NP [address] [facility] [address] [place] [address] 12/07/2022 09:21:43 12/07/2022 10:09:18 History and physical examination, occupation 920546817 Z02.1 History an d physical examination, pre-employment [id number] Z02.1 Health Concerns Section Related Observation LastModified by Organization Detai ls LastModified Time None Recorded Concern Status LastModified by Organization Details LastModified Time None Recorded Advance Directives Directive None Recorded Payers Insurance Date Sequence Insurance Name Policy Number Policy Morrow Covered Member ID Morrow Member ID Guarantor Name 12/07/2022 PAY AT TOS Oc-Pay At Time Of Service [facility] Giancarlo Ambrosen 12/07/2022 OC-PAY AT TIME OF SERVICE 2022 Oc-Pay At Time Of Service [facility] Giancarlo Ambrosen 12/06/2022 1 [facility] [id number] 1 Tali Ambrosen [id number] Giancarlo Ambrosen Notes Date Note Type Note Provider Name a nd Address Organization Details Recorded Time 12/07/2022 text/html physical Chinkevin Bennett NP [address] [place], [address], [place] - [facility] 12/07/2022 10:08:54
== END 2024-09-20 11:50 | disposition home or self-care (01) ==
LOC: HO.HMCC 10:49
PROVIDERS: PCP Internal Medicine; Visit Provider Internal Medicine
DX: K59.00 Constipation, unspecified (principal); N20.1 Calculus of ureter

== ENCOUNTER → 2024-09-20 10:49 | Outpatient (BNVA) | payer OTHER, MEDICAID, SELFPAY | PROVIDERS: PCP Internal Medicine; Visit Provider Internal Medicine ==

== ENCOUNTER 2024-11-04 09:20 | Outpatient (AMB) | payer OTHER, MEDICAID, SELFPAY ==
--- OUTSIDE RECORDS SUMMARY | 2024-11-04 09:47 | XMS_ITS | Clinical Summary ---
Author Organization [facility] Address [address] [place] [address] Phone Care Team Providers Care Chute Puller Name Role Phone Unavailable Primary Care Provider Unavailabl e Allergies Active Allergy Reactions Criticality Noted Date Comments Atenolol Palpitations 09/17/2024 Medications oxyCODONE-aceta minophen (Percocet) 5-325 mg per tablet Take 1 tablet by mouth every 6 (six) hours if needed for severe pain. Max Daily Amount: 4 tablets Active Surgical History Surgery Date Site/Laterality Comments APPENDECTOMY ABLATION OF DYSRHYTHMIC FOCUS Medical History Medical History Date Comments Chronic kidney disease KIDNEY ST ONES Social History Tobacco Use Types Packs/Day Years Used Date Smoking Tobacco: Never Assessed Sex and Gender Information Value Date Recorded Sex Assigned at Not on file Legal Sex Male 11:25 PM EST Gender Identity Not on file Sexual Orientation Not on file Obstetrics History Last Filed Vital Signs Vital Sign Reading Time Taken Comments Blood Pressure - - Pulse - - Temperature - - Respiratory Rate - - Oxygen Saturation - - Inhaled Oxygen Concentration - - Weight 102 kg (224 lb) 09/17/2024 11:00 AM EDT Height 170.2 cm (5' 7 ) 09/17/2024 11:00 AM EDT Body Mass Index 35.08 09/17/2024 11:00 AM EDT Plan of Treatment Health Maintenance Due Date Last Done Comments DTaP,Tdap,and Td Vaccines (1 - Tdap) 1999 Hepatitis B Vaccines (1 of 3 - 19+ 3-dose series) 1999 COVID-19 Vaccine ( - 2023-2 5 season) 2023 Influenza Vaccine (#1) 2024 HIB Vaccines Aged Out No longer eligi ble based on patient's age to complete this topic HPV Vaccines Aged Out No longer eligi ble based on patient's age to complete this topic Hepatitis A Vaccines Aged Out No long er eligible based on patient's age to complete this topic IPV Vaccines Aged Out No longer eligi ble based on patient's age to complete this topic MMR Vaccines Aged Out No longer eligi ble based on patient's age to complete this topic Meningococcal ACWY Vaccine Aged Out N o longer eligible based on patient's age to complete this topic Meningococcal B Vaccine Aged Out No l onger eligible based on patient's age to complete this topic Pneumococcal Vaccine: Pediat rics (0 to 5 Years) and At-Risk Patients (6 to 64 Years) Aged Out No longer eligible b ased on patient's age to complete this topic RSV Immunization Patients Un clay 20 months Aged Out No longer eligible b ased on patient's age to complete this topic Varicella Vaccines Aged Out No longer eligible based on patient's age to complete this topic
--- OUTSIDE RECORDS SUMMARY | 2024-11-04 09:47 | XMS_ITS | Data Portability ---
Author Organization [facility], [address] Address [address] [place] [address] Care Team Providers Care Figure Refinisher And Repairer Name Role Phone [facility] Primary Care Provider Assessment No assessment recorded. Plan of Treatment Reminders Order Date Submit Date Provider Last Modified By Organization Details Last Modified Time Details Appointments None recorded. Lab Mycobacteri um tuberculosi s stimulated gamma interferon, qual, blood 2022 023 [place] [facility], [address] [place] [address], [place], [address], 3 20:06:21 Referral None recorded. Procedures None recorded. Surgeries None recorded. Imaging None recorded. Medication Orders None recorded. Patient TargetsNo targets recorded. Patient Instructions Encounter Date Encounter Id Patient Instructions Last Modified By Organization Details Last Modified Time 12/07/2022 [id number] This physical does not replace the annual physical to be performed by your PCP. There may be additional screening tests that they will perform that we do not in the urgent care setting. Failure to follow up as recommended may result in significant adverse health consequences. If your symptoms worsen or you develop [...] INCUBA TION PERFOR MED. Not Available [facility] ([facility]) [address] [facility], [place], [address], 12/09/2022 20:06:21 12/08/19 23 12/09/2022 QUANT IFERO [...] ol for the test. Not Available [facility] ([facility]) [address] [place], [address], 12/09/2022 20:06:21 12/08/19 23 12/09/2022 QUANT IFERO N-TB GOLD PLUS quantiferon TB1 Ag value 0.00 IU/mL Not Available [facility]) [address] [place], [address], 12/09/2022 20:06:21 12/08/19 23 12/09/2022 QUANT IFERO N-TB GOLD PLUS quantiferon TB2 Ag value 0.00 IU/mL Not Available [facility]) [address] [place], [address], 12/09/2022 20:06:21 12/08/19 23 12/09/2022 QUANT IFERO N-TB GOLD PLUS quantiferon nil value 0.00 IU/mL Not Available [facility] ([facility]) [address] [place], [address], 12/09/2022 20:06:21 12/08/19 23 12/09/2022 QUANT IFERO N-TB GOLD PLUS quantiferon mitogen value >10.00 IU/mL Not Available [facility] ([facility]) [address] [facility] [place], [address], 12/09/2022 20:06:21 12/08/19 23 12/09/2022 QUANT IFERO [...] y metho dolog y Not Available [facility] ([facility]) [address] [facility], [place], [address], 12/09/2022 20:06:21 Result Notes None recorded. Problems No Known Problems Procedures Surgical History Date Name Laterality Status Provider Name and Address Organization Details Recorded Time 12/08/19 23 OC - Venipuncture Template completed EAGLE DAWKINS [employer] - [facility] 12/07/2022 09:33:36 12/08/19 23 [...] blood by Pulse oximetry Body temperature Systolic And Diastolic Provider Name and Address Organization Details Last Updated DateTime 3 18 /min 338285. 47 g 35.6 kg/m2 170.18 cm 86 /min 97 % 97 % 97.7 [degF] 142/90 mm[Hg] JERED BROCK PA - [facility] 3 09:53:02 Social History Question Answer Notes LastModified by Organizat ion Details LastModified Time Tobacco Smoking Status Never Smoker [facility] Lopez - [facility] 12/07/2022 09:51:24 Have You Recently Traveled [...] SNOMED-CT Code Diagnosis ICD10 Code Diagnosis Note [id number] [address] [address] 07/09/2021 09:03:10 07/09/2021 11:00:04 [id number] [address] [address] 08/10/2021 09:36:22 08/10/2021 11:24:28 [id number] [place] Bennett [place] [address] [facility] [address] [place] [address] 12/07/2022 09:21:43 12/07/2022 10:09:18 History and physical examination, occupation [id number] Z02.1 History an d physical examination, pre-employment [id number] Z02.1 Health Concerns Section Related Observation LastModified by Organization [facility] LastModified Time None Recorded Concern Status LastModified by Organization Details LastModified Time None Recorded Advance Directives Directive None Recorded Payers Insurance Date Sequence Insurance Name Policy Number Policy Morrow Covered Member ID Morrow Member ID Guarantor Name 12/07/2022 PAY AT TOS Oc-Pay At Time Of Service [facility] Giancarlo Ambrosen 12/07/2022 OC-PAY AT TIME OF SERVICE 2022 Oc-Pay At Time Of Service [facility] Giancarlo Ambrosen 12/06/[address] [place] [address] [id number] Tali Ambrosen [id number] Giancarlo Jeremy Notes Date Note Type Note Provider Name a nd Address Organization Details Recorded Time 12/07/2022 text/html physical Chinkevin Bennett NP [address] [place], [address], [place] - [facility] 12/07/2022 10:08:54
[2024-11-04 09:48] VITALS: BP 126/86; PULSE 82; TEMP 37; O2SAT 97; BMI 35.1
--- NOTE | 2024-11-04 09:48 | MHC.OFFWIV ---
Intake Vital Signs 11/04/24 09:48 Height 5 ft 7 in Weight 224 lb BMI 35.1 BP 126/86 Blood Pressure Location Rt brachial Position Sitting Pulse 82 Pulse Source Pulse Oximeter Temp 98.6 F Temp Source Oral Pulse Oximetry (%) 97 Oxygen Delivery Method Room Air Intake Visit Reasons: EP tingling sensation, pain on RT arm & ear pain Intake Note: presents with tingling sensation rt arm to fingers for 2 weeks and bilateral ear pain for a week Patient Tobacco Use Status: Never used Tobacco Allergies atenolol (ATENOLOL) Allergy (Unknown, Verified 11/04/24 09:54) UNKNOWN, heart racing Do you need a note to return to daycare/school/sports/work: No HPI HPI Comments History of Present Illness Details 44 y/o Male patient who presents to the walk in clinic with c/o tingling sensation right arm radiating to his fingers for 2 weeks. Reports getting Blood work done few days ago, but denies injury or trauma. Reports normal ROM and denies Pain. He also c/o bilateral ear pain with discharge for 1 week. [facility] Medical History (Updated 11/04/24 @ 10:41 by Yvette Vela NP) Numbness and tingling in right hand Otitis externa Constipation Right kidney stone Cough Acute respiratory disease Cervical spinal stenosis Bulging of cervical intervertebral disc History of fall Surgical History H/O cardiac radiofrequency ablation History of appendectomy Social History Housing: House Alcohol intake: current Alcohol intake frequency: does not drink Patient Tobacco Use Status: Never used Tobacco e-Cigarette/Vaping Use: Never Used service: No Current occupational status: employed Cognitive needs: No Hearing needs: No Vision needs: Yes Review of Systems Const All systems reviewed & are unremarkable except as noted in HPI and below Physical Exam Vital Signs: Last Vital Signs Temp 98.6 F 11/04/24 09:48 Pulse 82 11/04/24 09:48 BP 126/86 11/04/24 09:48 Pulse Ox 97 11/04/24 09:48 Oxygen Delivery Method Room Air 11/04/24 09:48 BMI result Body Mass Index 35.1 Const General: no acute distress Nutritional Appearance: obese Orientation/consciousness: patient oriented x3 HEENT Head: Yes normocephalic Ears: external ears normal, Abnormal EAC present erythema and EAC tenderness; no edema and TM abnormal wth effusion purulent and retracted; not perforated General nose exam: Normal external nose present Face and sinus: Yes sinuses nontender Mouth: moist mucous membranes Neuro General: patient oriented x3, gait normal and moves all extremities Motor exam (neuro): 5/5 motor strength present throughout Extrem Right upper extremity: elbow/forearm Details: normal to inspection and normal ROM; no tenderness, no swelling and no crepitus Left upper extremity: normal to inspection and full ROM Assessment & Plan Assessment & Plan (1) Otitis externa: Code(s): H60.90 - Unspecified otitis externa, unspecified ear Qualifiers: Otitis externa type: unspecified type Chronicity: acute Laterality: bilateral Qualified Code(s): H60.503 - Unspecified acute noninfective otitis externa, bilateral Plan: Otitis External - ordered Cipro Acetaminophen for pain relief (2) Numbness and tingling in right hand: Code(s): R20.0 - Anesthesia of skin; R20.2 - Paresthesia of skin Plan: Pain radiates from Neck; ?Pinched Nerve vs Neck Sprain/Strain Advised to F/u with PCP for further evaluation, possibly Neuro referral or MRI Ordered Flexeril for now. Medications: New ciprofloxacin-dexamethasone 0.3-0.1 % 4 drps otic (ears) BID 7.5 mL 0RF 7 days H60.90 - Unspecified otitis externa, unspecified ear cyclobenzaprine 10 mg PO BEDTIME 14 tabs 0RF R20.0 - Anesthesia of skin, R20.2 - Paresthesia of skin Changed From ibuprofen PO R20.0 - Anesthesia of skin, R20.2 - Paresthesia of skin To ibuprofen 400 mg PO Q6-8H 20 tabs 0RF R20.0 - Anesthesia of skin, R20.2 - Paresthesia of skin Coding Level of Care Code Est Pt Level 4 (03496) Diagnoses Acute otitis externa of both ears, unspecified type H60.503 Otitis externa type: unspecified type Chronicity: acute Laterality: bilateral Numbness and tingling in right hand R20.0; R20.2 Time Spent (min) 20
== END 2024-11-04 10:45 | disposition home or self-care (01) ==
PROVIDERS: PCP Internal Medicine; Visit Provider Nurse Practitioner Family
DX: H60.503 Unspecified acute noninfective otitis externa, bilateral (principal); R20.0 Anesthesia of skin; R20.2 Paresthesia of skin

== ENCOUNTER 2024-11-06 13:47 | Outpatient (AMB) | payer OTHER, MEDICAID, SELFPAY ==
[2024-11-06 13:49] VITALS: BP 144/92; PULSE 97; RESP 16; TEMP 36.8; O2SAT 96; BMI 35.1
--- NOTE | 2024-11-06 13:49 | A.OFFPC_ITS ---
Vital Signs 11/06/24 13:49 Height 5 ft 7 in Weight 224 lb BMI 35.1 BP 144/92 H Blood Pressure Location Lt brachial Position Sitting Respiration 16 Pulse 97 Pulse Source Pulse Oximeter Temp 98.3 F Temp Source Oral Pulse Oximetry (%) 96 Oxygen Delivery Method Room Air Intake Visit Reasons: Right hand tingling, ear pain Intake Note: Pt is here today c/o Rt bicep down to Rt hand tingling x2.5 week woke up like this with sx's Allergies atenolol (ATENOLOL) Allergy (Unknown, Verified 11/10/24 23:06) UNKNOWN, heart racing Medication List - Last Reconciled 11/10/24 by Diana Mcguire MD amoxicillin-pot clavulanate 875-125 mg 1 tab PO Q12H plqbpjsh-owvsfkkuk-VA 3.5-10,000-1 mg/mL-unit/mL-% 4 drps otic (ear) left Q8H 5 days Tobacco use date assessed: 11/06/24 Dental Screening Dental Screen Date: 11/06/24 Did you have a dental visit in the last 12 months?: Yes Did you have a dental problem in the last 6 months where you did not have access to dental care?: No Was dental information given to patient?: Patient has dentist HPI HPI Comments History of Present Illness Details 44-year-old male here today for follow-u p after recent visit to the walk-in clinic complaining of pain in his anterior aspect of right shoulder, with radiation down right arm, experiencing intermittent episodes of numbness and tingling in his hand and fingers. This has been present now for the last week, with no improvement with taking ibuprofen or cyclobenzaprine. No history of trauma or any inciting factors It was also diagnosed to have acute otitis externa and prescribed Cipro dexamethasone ear drops which he was unable to fill, denied by insurance. Still complaining of pain and fullness in both ears right more than the left, with decreased hearing in both [facility] Medical History Shoulder pain, acute Acute otitis media Numbness and tingling in right hand Otitis externa Constipation Right kidney stone Cough Acute respiratory disease Cervical spinal stenosis Bulging of cervical intervertebral disc History of fall Surgical History H/O cardiac radiofrequency ablation History of appendectomy Social History Housing: House Alcohol intake: current Alcohol intake frequency: does not drink Patient Tobacco Use Status: Never used Tobacco e-Cigarette/Vaping Use: Never Used service: No Current occupational status: employed Cognitive needs: No Hearing needs: No Vision needs: Yes Questionnaire Thrive Questionnaire Date Thrive assessed: 06/09/21 I am a: Patient What is your living situation today?: I have a steady place to live Within the past 12 months, did the food you bought not last and you didn't have the money to get more?: Never true Within the past 12 months, did you worry whether your food would run out before you got money to buy more?: Never true Do you have trouble paying for medicines?: No Do you have trouble getting transportation to medical appointments?: No Do you have trouble paying your heating and electricity bill?: No Do you have trouble taking care of your child, family member or friend?: No Do you have trouble with day-to-day activities such as bathing, preparing meals, shopping, managing finances, etc.?: No Are you currently unemployed and looking for a job?: No Are you interested in more education?: No Please select the resources that you would like help with: None Currently or been in a relationship where the following occur: No concerns reported THRIVE Score: 0 AUDIT C Alcohol Use Questionnaire (AUDIT-C) 1. How often do you have a drink containing alcohol?: Never Total Score: 0 Review of Systems Const All systems reviewed & are unremarkable except as noted in HPI and below Denies chills and Denies fever(s) ENT Reports as per HPI Card Reports no additional complaints Resp Reports no additional complaints GI Reports no additional complaints Reports no additional complaints Musc Reports as per HPI Neuro Reports no additional complaints Physical exam (Primary Care) Vital Signs: Last Vital Signs Temp 98.3 F 11/06/24 13:49 Pulse 97 11/06/24 13:49 Resp 16 11/06/24 13:49 BP 144/92 H 11/06/24 13:49 Pulse Ox 96 11/06/24 13:49 Oxygen Delivery Method Room Air 11/06/24 13:49 BMI result Body Mass Index 35.1 Tobacco/Smoking Status: Tobacco use Status Tobacco use date assessed 11/06/24 11/06/24 13:56 Patient Tobacco Use Status Never used Tobacco 11/06/24 13:56 e-Cigarette/Vaping Use Never Used 11/06/24 13:56 PHQ-9: PHQ-9 Score PHQ-9: Total score 3 11/06/24 14:24 Thrive Assessment: Date of Thrive Assessment Date Thrive assessed 06/09/21 11/06/24 13:56 Currently or been in a relationship where the following occur: No concerns reported Const General: no acute distress, alert, awake and Physically active Nutritional Appearance: obese Orientation/consciousness: patient oriented x3 HENMT Ears: hearing grossly normal bilaterally, external ears normal, TM's normal bilaterally and Abnormal EAC present excessive cerumen, erythema, edema and EAC tenderness Neck Neck: Yes normal visual inspection, Yes full ROM and Yes supple Resp Auscultation: clear to auscultation bilaterally Cardio Other: S1-S2 present regular rate and rhythm Neuro General: patient oriented x3, gait normal, tone normal, moves all extremities, Normal light touch and pain sensation and no focal motor deficits Extrem Other: Full range of motion of right shoulder joint, slight tenderness on palpation over right AC joint, no gross bone deformity noted, equivocal impingement sign on right Right upper extremity: full ROM and no joint enlargement Coding Level of Care Code Est Pt Level 4 (69986) Diagnoses Acute otitis media H66.90 Otitis media type: suppurative Laterality: bilateral Recurrence: non-recurrent Numbness and tingling in right hand R20.0; R20.2 Acute pain of right shoulder M25.511 Laterality: right Assessment & Plan Assessment & Plan (1) Acute otitis media: Code(s): H66.90 - Otitis media, unspecified, unspecified ear Category: Medical Qualifiers: Otitis media type: suppurative Laterality: bilateral Recurrence: non- recurrent Plan: Prescription sent for Augmentin 875 mg-125 to take 1 every 12 hours for 10 days. Patient advised to try refilling prescription for ciprofloxacin dexamethasone, with new diagnosis (2) Numbness and tingling in right hand: Code(s): R20.0 - Anesthesia of skin; R20.2 - Paresthesia of skin Category: Medical Plan: Likely pinched nerve. Will 1st get an x-ray of right shoulder joint, if no acute pathology will refer for physical therapy (3) Shoulder pain, acute: Code(s): M25.519 - Pain in unspecified shoulder Category: Medical Qualifiers: Laterality: right Qualified Code(s): M25.511 - Pain in right shoulder Plan: X-ray of right shoulder ordered Orders: Orders XR shoulder RT min 2V 11/06/24 M25.519 - Pain in unspecified shoulder, R20.0 - Anesthesia of skin, R20.2 - Paresthesia of skin Medications: New amoxicillin-pot clavulanate 875-125 mg 1 tab PO Q12H 20 tabs 0RF ciprofloxacin-dexamethasone 0.3-0.1 % 4 drps otic (ears) BID 7 days 7.5 mL 0RF H66.90 - Otitis media, unspecified, unspecified ear
--- OUTSIDE RECORDS SUMMARY | 2024-11-06 14:36 | XMS_ITS | Data Portability ---
Author Organization [facility], [address] Address [address] [place] [address] Care Team Providers Care Family Court Justice Name Role Phone [facility] Primary Care Provider Assessment No assessment recorded. Plan of Treatment Reminders Order Date Submit Date Provider Last Modified By Organization Details Last Modified Time Details Appointments None recorded. Lab Mycobacteri um tuberculosi s stimulated gamma interferon, qual, blood 2022 023 [place] [facility], [address] [place] [address], [place], [address], 3 20:06:21 Referral None recorded. Procedures None recorded. Surgeries None recorded. Imaging None recorded. Medication Orders None recorded. Patient TargetsNo targets recorded. Patient Instructions Encounter Date Encounter Id Patient Instructions Last Modified By Organization Details Last Modified Time 12/07/2022 [id number] This physical does not replace the annual [...] INCUBA TION PERFOR MED. Not Available [facility] ([facility]) [address] [facility], [place], [address], 12/09/2022 20:06:21 12/08/19 23 12/09/2022 QUANT IFERO [...] ol for the test. Not Available [facility] ([facility]) [address] [place], [address], 12/09/2022 20:06:21 12/08/19 23 12/09/2022 QUANT IFERO N-TB GOLD PLUS quantiferon TB1 Ag value 0.00 IU/mL Not Available [facility] ([facility]) [address] [place], [address], 12/09/2022 20:06:21 12/08/19 23 12/09/2022 QUANT IFERO N-TB GOLD PLUS quantiferon TB2 Ag value 0.00 IU/mL Not Available [facility] ([facility]) [address] [place], [address], 12/09/2022 20:06:21 12/08/19 23 12/09/2022 QUANT IFERO N-TB GOLD PLUS quantiferon nil value 0.00 IU/mL Not Available [facility] ([facility]) [address] [place], [address], 12/09/2022 20:06:21 12/08/19 23 12/09/2022 QUANT IFERO N-TB GOLD PLUS quantiferon mitogen value >10.00 IU/mL Not Available [facility] ([facility]) [address] [facility] [place], [address], 12/09/2022 20:06:21 12/08/19 23 12/09/2022 QUANT IFERO [...] y metho dolog y Not Available [facility] ([facility]) [address] [facility], [place], [address], 12/09/2022 20:06:21 Result Notes None recorded. Problems No Known Problems Procedures Surgical History Date Name Laterality Status Provider Name and Address Organization Details Recorded Time 12/08/19 23 OC - Venipuncture Template completed [facility] - [facility] 12/07/2022 09:33:36 12/08/19 23 [...] Details Last Updated DateTime 3 18 /min 552249. 47 g 35.6 kg/m2 170.18 cm 86 [...] SNOMED-CT Code Diagnosis ICD10 Code Diagnosis Note [id number] [address] [address] 07/09/2021 09:03:10 07/09/2021 11:00:04 [id number] [address] [address] [address] 08/10/2021 09:36:22 08/10/2021 11:24:28 [id number] [place] [address] [facility] [address] [place] [address] 12/07/2022 09:21:43 12/07/2022 10:09:18 History and physical examination, occupation 053902591 Z02.1 History an d physical examination, pre-employment [id number] Z02.1 Health Concerns Section Related Observation LastModified by Organization Owen hays LastModified Time None Recorded Concern Status LastModified by Organization Details LastModified Time None Recorded Advance Directives Directive None Recorded Payers Insurance Date Sequence Insurance Name Policy Number Policy Morrow Covered Member ID Morrow Member ID Guarantor Name 12/07/2022 PAY AT TOS Oc-Pay At Time Of Service [facility] Giancarlo Ambrosen 12/07/2022 OC-PAY AT TIME OF SERVICE 2022 Oc-Pay At Time Of Service [facility] Giancarlo Ambrosen 12/06/[address] [place] [address] [id number] Tali Ambrosen [id number] Giancarlo Jeremy Notes Date Note Type Note Provider Name a nd Address Organization Details Recorded Time 12/07/2022 text/html physical Chinkevin Bennett NP [address] [place], [address], [place] - [facility] 12/07/2022 10:08:54
--- OUTSIDE RECORDS SUMMARY | 2024-11-06 14:36 | XMS_ITS | Clinical Summary ---
Author Organization [facility] Address [address] [place] [address] Phone Care Team Providers Care Traffic Control Operator Name Role Phone Unavailable Primary Care Provider [...] 5 Years) and At-Risk Patients (6 to 49 Years) Aged Out No longer eligible b ased on patient's age to complete this topic RSV Immunization Patients Un clay 20 months Aged Out No longer eligible b ased on patient's age to complete this topic Varicella Vaccines Aged Out No longer eligible based on patient's age to complete this topic
== END 2024-11-06 14:33 | disposition home or self-care (01) ==
PROVIDERS: PCP Internal Medicine; Visit Provider Internal Medicine
DX: H66.90 Otitis media, unspecified, unspecified ear (principal); R20.0 Anesthesia of skin; R20.2 Paresthesia of skin; M25.511 Pain in right shoulder

== ENCOUNTER 2024-11-06 14:32 | Outpatient (REF) | payer OTHER, MEDICAID, SELFPAY ==
--- NOTE | ~2024-11-06 | XR_ITS ---
EXAMINATION: XR SHOULDER 2 OR MORE VIEWS RIGHT HISTORY: M25.519 - Pain in unspecified shoulder COMPARISON: There are no prior studies available for comparison. FINDINGS: Two views of the right shoulder are submitted. Osseous mineralization is normal. There is no fracture or dislocation. The glenohumeral and acromioclavicular joint spaces are preserved. The soft tissues are unremarkable. XR/XR shoulder RT min 2V IMPRESSION: Unremarkable examination of the right shoulder. Electronically signed by: Andrew Crain MD 11/06/2024 02:54 PM EDT
== END 2024-11-06 14:33 | disposition home or self-care (01) ==
LOC: HO.HMGCX 14:32
PROVIDERS: PCP Internal Medicine; Visit Provider Internal Medicine
DX: R20.0 Anesthesia of skin (principal); R20.2 Paresthesia of skin; M25.511 Pain in right shoulder
CPT/HCPCS: 73030

== ENCOUNTER → 2024-11-06 14:35 | Outpatient (BNV) | payer OTHER, MEDICAID, SELFPAY | PROVIDERS: PCP Internal Medicine; Visit Provider Radiology Diagnostic Radiology | DX: M25.511 Pain in right shoulder (principal) | CPT/HCPCS: 73030 ==

== ENCOUNTER 2025-01-02 08:40 | Emergency (ER) | payer OTHER, MEDICAID, SELFPAY ==
[2025-01-02 09:01] VITALS: BP 156/73; PULSE 88; RESP 16; TEMP 37; O2SAT 94; BMI 29.7
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
--- NOTE | 2025-01-02 09:27 | ECG_ITS ---
Test Reason : FATIGUE Blood Pressure : */* mmHG Vent. Rate : 81 BPM Atrial Rate : 81 BPM P-R Int : 152 ms QRS Dur : 80 ms QT Int : 374 ms P-R-T Axes : 50 21 24 degrees QTcB Int : 434 ms Normal sinus rhythm Normal ECG When compared with ECG of 30-Jul-2012 10:14, No significant changes seen Referred By: Farshad Stone Electronically Signed By: Marco Ashby
[2025-01-02 09:46] LABS: MANUAL DIFF FLAG NO
[2025-01-02 09:48] LABS: Hematocrit 44.1 % (42.0-52.0); Hemoglobin 15.4 g/dl (14.0-18.0); Imm Gran Abs Auto 0.08 X10*3/uL (0.00-0.03); Imm Gran Pct Auto 0.6 % (0.0-0.4); Lymphocytes Absolute Auto 2.8 X10*3/uL (1.2-4.9); Mean Corpuscular HGB Conc 34.9 g/dl (31.0-36.0); Mean Corpuscular Hemoglobin 29.6 pg (27.0-33.0); Mean Corpuscular Volume 84.8 fL (80.0-98.0); NRBC Abs Auto 0.000 X10*3/uL (0.0-0.012); NRBC Pct Auto 0.0 /100WBC (0.0-0.2); Platelet Count 214 X10*3/uL (160-400); Red Blood Count 5.20 X10*6/uL (4.60-5.80); White Blood Count 12.9 X10*3/uL (4.8-10.8)
--- OUTSIDE RECORDS SUMMARY | 2025-01-02 09:48 | XMS_ITS | Encounter Summary ---
Author Organization [facility] Address [address] [facility] [address] [place] [id number] Phone Care Team Providers Care Kaiako Kura [place] Maori Name Role Phone Pcp, Unknown Primary Care Provider Unavailabl e Encounter Details Date Type Department Care Team (Late st Contact Info) Description 09/18/2024 Procedure Pass OR Admitting Dept - Virtual Department [address] [place] [address] Social History Tobacco Use Types Packs/Day Years Used Date Smoking Tobacco: Never Smokeless Tobacco: Never Alcohol Use Standard Drinks/Week Comments Never 0 (1 standard drink = 0.6 oz pur e alcohol) Education Answer Date Recorded Are you interested in more education? Not on maurilio e 09/13/2024 Are you concerned about learning? Not on file 09/13/2024 No 09/13/2024 No 09/13/2024 Digital Access Answer Date Recorded No 09/13/2024 No 09/13/2024 Reliable internet access at home? Not on file 09/13/2024 Device with a working camera? Not on file Intimate Partner Violence Answer Date R ecorded Are you denied basic needs s uch as food, clothing, or medical care? No 09/18/2024 In the past 12 months have y ou been in a relationship with a person who hurts, threatens, or tries to control you? No 09/18/2024 Are you denied basic needs s uch as food, clothing, or medical care? No 09/18/2024 In the past 12 months have y ou been in a relationship with a person who hurts, threatens, or tries to control you? No 09/18/2024 Sex and Gender Information Value Date Recorded Sex Assigned at Not on file Legal Sex Male 7:19 PM EST Gender Identity Not on file Sexual Orientation Not on file documented as of this encounter Plan of Treatment Not on file documented as of this encounter Visit Diagnoses Not on filedocumented in this encounter Care Teams Kaiako Kura [place] Maori Relationship Specialty Start Date End Date Pcp, Unknown PCP - General 09/13/24 documented as of this encounter Additional Source Comments The information contained in this document represents components of the legal health record. It is not the complete legal health record.[facility]
--- OUTSIDE RECORDS SUMMARY | 2025-01-02 09:48 | XMS_ITS | Clinical Summary ---
Author Organization [facility] Address [address] [place] [address] Phone Care Team Providers Care Plant Operator Helper Name Role Phone Unavailable Primary Care Provider [...] of 3 - 19+ 3-dose series) 1999 Depression Screening 05/01/2024 COVID-19 Vaccine ( - 2023-2 5 season) 2024 Influenza Vaccine (#1) 2024 HIB Vaccines Aged [...]
--- OUTSIDE RECORDS SUMMARY | 2025-01-02 09:48 | XMS_ITS | Clinical Summary ---
Author Organization [facility] Address [address] [facility] [address] [place] [address] Phone Care Team Providers Care Legal Practice Manager Name Role Phone Pcp, Unknown Primary Care Provider Unavailabl e Allergies Active Allergy Reactions Criticality Noted Date Comments Atenolol 09/17/2024 Medications oxyCODONE 5 MG immediate release tablet Take 5 mg by mouth every 4 (four) hours as needed. Active traMADoL (ULTRAM) 50 mg tablet Take 1 tablet (50 mg total) by mouth every 6 (six) hours as needed for pain (specific location in comments). 20 tablet 09/18/2024 Active Social History Tobacco Use Types Packs/Day Years Used Date Smoking Tobacco: Never Smokeless Tobacco: Never Tobacco Cessation:Counseling Given: Not Answered Alcohol Use Standard Drinks/Week Comments Never 0 [...] on file Sexual Orientation Not on file Last Filed Vital Signs Vital Sign Reading Time Taken Comments Blood Pressure 142/92 09/18/2024 2:41 PM EDT Pulse 76 09/18/2024 1:00 PM EDT Temperature 36.2 C (97.2 F) 09/18/2024 2:41 PM EDT Respiratory Rate 14 09/18/2024 1:00 PM EDT Oxygen Saturation 95% 09/18/2024 2:41 PM EDT Inhaled Oxygen Concentration - - Weight 101.6 kg (224 lb) 09/18/2024 10:00 AM EDT Height 170.2 cm (5' 7 ) 09/18/2024 10:00 AM EDT Body Mass Index 35.08 09/18/2024 10:00 AM EDT Plan of Treatment Health Maintenance Due Date Last Done Comments Adult Td,Tdap Booster 1980 LIPID PANEL 1980 DEPRESSION SCREENING 1992 HEPATITIS C SCREENING 1998 HIV ONE-TIME SCREENING (18-6 5 YEARS) 1998 SCREENING FOR DIABETES 2015 COVID-19 VACCINE (2023-2 5 season) 2023 INFLUENZA VACCINE (#1) 2024 SMOKING STATUS SCREENING (On ce After 26 Yrs) Completed 09/18/2024 HEPATITIS A VACCINES Aged Out No long er eligible based on patient's age to complete this topic HIB VACCINES Aged Out No longer eligi ble based on patient's age to complete this topic MENINGOCOCCAL VACCINES (ACWY) Aged Out No longer eligible based on patient's age to complete this topic MENINGOCOCCAL VACCINES (B) Aged Out N o longer eligible based on patient's age to complete this topic PNEUMOCOCCAL VACCINES (0-49 years) Aged Out No longer eligible based on patient's age to complete this topic Medical Devices Implanted Type Area Market Consultant Device Identifier Shelf Expiration Date Model / Serial / Lot Stent Ureteral [id number] Soft Tria - [id number] Implanted:Qty : 1 on 09/18/2024 by Uriel Larson MD at [facility] Right: Ureter [employer]AN[employer] [id number] 04/15/2027 [id number] / / [id number] Insurance Care Teams Legal Practice Manager Relationship Specialty Start Date End Date Pcp, Unknown PCP - General 09/13/24 Additional Source Comments The information contained in this document represents components of the legal health record. It is not the complete legal health record.[facility]
[2025-01-02 09:49] LABS: Venous Blood Gas Refer to POC result
[2025-01-02 09:50] LABS: VBG HCO3 23 mmol/L (22-26); VBG O2 % Saturation 99.0 %
[2025-01-02 10:00] VITALS: BP 136/85; PULSE 88; RESP 16; O2SAT 98
[2025-01-02 10:06] LABS: Alanine Aminotransferase 59 U/L (0-40); Albumin Level 4.6 g/dL (3.5-5.0); Alkaline Phosphatase 64 U/L (39-117); Anion Gap 14 (12-20); Aspartate Amino Transferase 31 U/L (5-37); Blood Urea Nitrogen 9 mg/dL (9-16); Calcium 9.0 mg/dL (8.4-10.2); Carbon Dioxide 25 mmol/L (22-29); Chloride 106 mmol/L (96-108); Creatinine Clr Calc Pharmacy 146.2; Estimated Glomerular Filt Rate > 60; Magnesium 2.0 mg/dL (1.6-2.6); Potassium 3.5 mmol/L (3.3-5.1); Sodium 141 mmol/L (135-145); Total Protein 7.3 g/dL (6.5-8.0)
[2025-01-02 10:43] VITALS: BP 124/60
[2025-01-02 10:44] VITALS: BP 124/60; PULSE 75; RESP 14; O2SAT 98
[2025-01-02 12:09] VITALS: BP 139/86; PULSE 92; RESP 16; TEMP 36.8; O2SAT 97
[2025-01-02 12:27] VITALS: BP 139/86; PULSE 92; RESP 16; TEMP 36.8; O2SAT 97
== END 2025-01-02 12:27 | disposition home or self-care (01) ==
PROVIDERS: Emergency Provider Emergency Medicine; PCP Internal Medicine
DX: G43.909 Migraine, unspecified, not intractable, without status migrainosus (principal); R11.0 Nausea; R53.83 Other fatigue; H53.143 Visual discomfort, bilateral; R41.3 Other amnesia; Z79.899 Other long term (current) drug therapy
CPT/HCPCS: 36415; 80048; 80076; 82803; 83735; 85025; 86140; 93005; 96361; 96374; 96375; 99284; 99285; J0737; J1200; J1885

== ENCOUNTER → 2025-01-02 09:27 | Outpatient (BNV) | payer OTHER, MEDICAID, SELFPAY | PROVIDERS: Emergency Provider Emergency Medicine; PCP Internal Medicine; Visit Provider Internal Medicine Cardiovascular Disease | DX: R53.83 Other fatigue (principal) | CPT/HCPCS: 93010 ==

== ENCOUNTER 2025-01-06 11:32 | Outpatient (AMB) | payer OTHER, MEDICAID, SELFPAY ==
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
[2025-01-06 11:39] VITALS: BP 134/90; PULSE 84; RESP 16; TEMP 37.1; O2SAT 98; BMI 35.1
--- OUTSIDE RECORDS SUMMARY | 2025-01-06 14:14 | XMS_ITS | Clinical Summary ---
Author Organization [facility] Address [address] [place] [address] Phone Care Team Providers Care Enrollment Consultant Name Role Phone Unavailable Primary Care Provider [...]
--- OUTSIDE RECORDS SUMMARY | 2025-01-06 14:14 | XMS_ITS | Encounter Summary ---
Author Organization [facility] Address [address] [facility] [address] [place] [phone] Phone Care Team Providers Care Hotshot Superintendent Name Role Phone Pcp, Unknown Primary Care Provider Unavailabl e Encounter Details Date Type Department Care Team (Late st Contact Info) Description 09/18/2024 Procedure Pass OR Admitting Dept - Virtual Department [address] [place] [address] Social History Tobacco Use Types Packs/Day Years [...] on filedocumented in this encounter Care Teams Hotshot Superintendent Relationship Specialty Start Date End Date Pcp, Unknown PCP - General 09/13/24 documented as of this encounter Additional Source Comments The information contained in this document represents components of the legal health record. It is not the complete legal health record.[facility]
--- OUTSIDE RECORDS SUMMARY | 2025-01-06 14:14 | XMS_ITS | Clinical Summary ---
Author Organization [facility] Address [address] [facility] [address] [place] [phone] Phone Care Team Providers Care Technical Aide Name Role Phone Pcp, Unknown Primary Care [...] this topic Medical Devices Implanted Type Area Observatory Director Device Identifier Shelf Expiration Date Model / Serial / Lot Stent Ureteral [id number] Soft Tria - [id number] Implanted:Qty : 1 on 09/18/2024 by Uriel Larson MD at [facility] Right: Ureter [employer] [id number] 04/15/2027 [id number] / / [id number] Insurance Care Teams Technical Aide Relationship Specialty Start Date End Date Pcp, Unknown PCP - General 09/13/24 Additional Source Comments The information contained in this document represents components of the legal health record. It is not the complete legal health record.[facility]
== END 2025-01-06 15:05 | disposition home or self-care (01) ==
LOC: HO.HMCC 11:33
PROVIDERS: PCP Internal Medicine; Visit Provider Internal Medicine
DX: G47.19 Other hypersomnia (principal); R06.83 Snoring; R41.3 Other amnesia

== ENCOUNTER 2025-01-10 17:45 | Emergency (ER) | payer OTHER, MEDICAID, SELFPAY ==
--- NOTE | ~2025-01-10 | CT_ITS ---
CLINICAL HISTORY: headache, memory problems CT head without contrast Comparison: None provided Findings: No intra-axial mass, midline shift, hydrocephalus, or acute hemorrhage. No significant atrophy-like change or white matter disease. Retention cysts left maxillary sinus. The orbits are unremarkable. There is no acute fracture. IMPRESSION: 1. No acute intracranial findings. This document has been electronically signed by: Miller Birmingham MD on 01/10/2025 20:35:47
[2025-01-10 17:50] VITALS: PULSE 95; RESP 18; TEMP 37.1; O2SAT 96; BMI 35.4
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
--- OUTSIDE RECORDS SUMMARY | 2025-01-10 18:01 | XMS_ITS | Encounter Summary ---
Author Organization [facility] Address [address] [facility] [address] [place] [phone] Phone Care Team Providers Care Search Advertising Strategist Name Role Phone Pcp, Unknown Primary Care Provider Unavailabl e Encounter Details Date Type Department Care Team (Late st Contact Info) Description 09/18/2024 Procedure Pass OR Admitting Dept - Virtual Department [address] [place] [address] Social History Tobacco Use Types Packs/Day Years [...] on filedocumented in this encounter Care Teams Search Advertising Strategist Relationship Specialty Start Date End Date Pcp, Unknown PCP - General 09/13/24 documented as of this encounter Additional Source Comments The information contained in this document represents components of the legal health record. It is not the complete legal health record.[facility]
--- OUTSIDE RECORDS SUMMARY | 2025-01-10 18:01 | XMS_ITS | Clinical Summary ---
Author Organization [facility] Address [address] [facility] [address] [place] [phone] Phone Care Team Providers Care Strainer Cleaner Name Role Phone Pcp, Unknown Primary Care [...] this topic Medical Devices Implanted Type Area Liner Worker Device Identifier Shelf Expiration Date Model / Serial / Lot Stent Ureteral [id number] Soft Tria - [id number] Implanted:Qty : 1 on 09/18/2024 by Uriel Larson MD at [facility] Right: Ureter [employer]AN[employer] [id number] 04/15/2027 [id number] 40 / / [id number] Insurance Care Teams Strainer Cleaner Relationship Specialty Start Date End Date Pcp, Unknown PCP - General 09/13/24 Additional Source Comments The information contained in this document represents components of the legal health record. It is not the complete legal health record.[facility]
--- OUTSIDE RECORDS SUMMARY | 2025-01-10 18:01 | XMS_ITS | Clinical Summary ---
Author Organization [facility] Address [address] [place] [address] Phone Care Team Providers Care Retail Pharmacy Manager Name Role Phone Unavailable Primary Care Provider [...]
[2025-01-10 18:06] LABS: MANUAL DIFF FLAG NO
[2025-01-10 18:11] LABS: Hematocrit 45.5 % (42.0-52.0); Hemoglobin 16.1 g/dl (14.0-18.0); Imm Gran Abs Auto 0.06 X10*3/uL (0.00-0.03); Imm Gran Pct Auto 0.7 % (0.0-0.4); Lymphocytes Absolute Auto 2.9 X10*3/uL (1.2-4.9); Mean Corpuscular HGB Conc 35.4 g/dl (31.0-36.0); Mean Corpuscular Hemoglobin 29.7 pg (27.0-33.0); Mean Corpuscular Volume 83.8 fL (80.0-98.0); NRBC Abs Auto 0.000 X10*3/uL (0.0-0.012); NRBC Pct Auto 0.0 /100WBC (0.0-0.2); Platelet Count 226 X10*3/uL (160-400); Red Blood Count 5.43 X10*6/uL (4.60-5.80); White Blood Count 9.0 X10*3/uL (4.8-10.8)
[2025-01-10 18:21] LABS: Alanine Aminotransferase 83 U/L (0-40); Albumin Level 4.7 g/dL (3.5-5.0); Alkaline Phosphatase 74 U/L (39-117); Anion Gap 13 (12-20); Aspartate Amino Transferase 56 U/L (5-37); Blood Urea Nitrogen 8 mg/dL (9-16); Calcium 9.5 mg/dL (8.4-10.2); Carbon Dioxide 26 mmol/L (22-29); Chloride 104 mmol/L (96-108); Creatinine Clr Calc Pharmacy 127.9; Estimated Glomerular Filt Rate > 60; Magnesium 2.2 mg/dL (1.6-2.6); Potassium 3.7 mmol/L (3.3-5.1); Sodium 139 mmol/L (135-145); Total Protein 7.7 g/dL (6.5-8.0)
[2025-01-10 19:01] VITALS: BP 152/95; PULSE 79; RESP 16; TEMP 36.6; O2SAT 95
[2025-01-10] MEDS: Magnesium Sulfate/H2O 2 GM/50 ML PIGGYBACK IV (19:48)
--- NOTE | 2025-01-10 19:50 | PC.NURSE ---
Patient brought to CT due to light sensitivity in a stretcher. Patient tolerated well, connected back to medications as soon as he got back from CT. 18 g IV placed in left forearm. Alert and oriented, able to make needs known. Call quiroga placed with patient, explained how to use the tv and call for help.
[2025-01-10 20:28] VITALS: BP 127/80; PULSE 79; RESP 16; TEMP 36.7; O2SAT 96
[2025-01-10 21:28] VITALS: BP 129/88; PULSE 83; RESP 17; TEMP 36.8; O2SAT 99
[2025-01-10 21:29] VITALS: BP 129/88; PULSE 83; RESP 17; TEMP 36.8; O2SAT 99
== END 2025-01-10 21:29 | disposition home or self-care (01) ==
PROVIDERS: Physician Assistant Medical; Emergency Provider Student in an Organized Health Care Education/Training Program; PCP Internal Medicine
DX: G43.909 Migraine, unspecified, not intractable, without status migrainosus (principal); Z79.899 Other long term (current) drug therapy
CPT/HCPCS: 36415; 70450; 80053; 83735; 85025; 96361; 96374; 96375; 99284; J1885; J2765; J3475

== ENCOUNTER → 2025-01-10 19:34 | Outpatient (BNV) | payer OTHER, MEDICAID, SELFPAY | PROVIDERS: Emergency Provider Student in an Organized Health Care Education/Training Program; PCP Internal Medicine; Visit Provider Radiology Diagnostic Radiology | DX: R51.9 Headache, unspecified (principal); R41.3 Other amnesia | CPT/HCPCS: 70450 ==

== ENCOUNTER 2025-01-13 09:19 | Outpatient (AMB) | payer OTHER, MEDICAID, SELFPAY ==
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
[2025-01-13 10:00] VITALS: BP 140/98; PULSE 84; RESP 16; TEMP 37.2; O2SAT 96
--- OUTSIDE RECORDS SUMMARY | 2025-01-13 11:00 | XMS_ITS | Encounter Summary ---
Author Organization Located Within [facility] Address [address] [place] [id number] Phone Care Team Providers Care Clarity Developer Name Role Phone Pcp, Unknown Primary Care Provider Unavailabl e Encounter Details Date Type Department Care Team (Late st Contact Info) Description 09/18/2024 Procedure Pass [place] Admitting Dept - Virtual Department [address] [place] [address] Social History Tobacco Use Types Packs/Day Years [...] on filedocumented in this encounter Care Teams Clarity Developer Relationship Specialty Start Date End Date Pcp, Unknown PCP - General 09/13/24 documented as of this encounter Additional Source Comments The information contained in this document represents components of the legal health record. It is not the complete legal health record.Located Within [facility]
--- OUTSIDE RECORDS SUMMARY | 2025-01-13 11:00 | XMS_ITS | Clinical Summary ---
Author Organization [facility] Address [address] [place] [address] Phone Care Team Providers Care Senior Web Architect Name Role Phone Unavailable Primary Care Provider [...]
--- OUTSIDE RECORDS SUMMARY | 2025-01-13 11:00 | XMS_ITS | Clinical Summary ---
Author Organization [facility] Address [address] [place] [phone] Phone Care Team Providers Care Snow Ranger Name Role Phone Pcp, Unknown Primary Care [...] 5 YEARS) 1998 SCREENING FOR DIABETES 2015 INFLUENZA VACCINE (#1) 2024 COVID-19 VACCINE (2023-2 5 season) 2024 SMOKING STATUS SCREENING (On ce After [...] this topic Medical Devices Implanted Type Area Toy Assembly Supervisor Device Identifier Shelf Expiration Date Model / Serial / Lot Stent Ureteral [id number] Soft Tria - [id number] Implanted:Qty : 1 on 09/18/2024 by Uriel Larson MD at [facility] Right: Ureter [employer]ANCI [id number] 04/15/2027 [id number] / / [id number] Insurance Care Teams Snow Ranger Relationship Specialty Start Date End Date Pcp, Unknown PCP - General 09/13/24 Additional Source Comments The information contained in this document represents components of the legal health record. It is not the complete legal health record.[facility]
== END 2025-01-13 10:53 | disposition home or self-care (01) ==
PROVIDERS: PCP Internal Medicine; Visit Provider Nurse Practitioner Family
DX: R51.9 Headache, unspecified (principal); G89.29 Other chronic pain